=== PATIENT | male | born 1995 | race Caucasian/White ===

== ENCOUNTER 2018-08-11 18:55 | Emergency (ER) | payer OTHER ==
[~2018-08-11] VITALS: Ht 170.2 cm; Wt 93.0 kg
[~2018-08-11 18:55] MED LIST: CENTRUM SILVER1 EAC2 PO; HYDROCODON-ACE1 EAC8 PO; NICODERM CQ1 EAC1 TD; ONDANSETRON ODT4 MG PO; PERCOCET 5-3251 EACH PO; PERCOCET PO; ZOFRAN ODT4 MG PO
[2018-08-11 21:44] VITALS: BP 122/78
== END 2018-08-11 21:47 | disposition home or self-care (01) ==
LOC: M.ERS 18:55
DX: T78.40XA Allergy, unspecified, initial encounter (principal); X58.XXXA Exposure to other specified factors, initial encounter; R22.0 Localized swelling, mass and lump, head; F17.210 Nicotine dependence, cigarettes, uncomplicated; Z90.49 Acquired absence of other specified parts of digestive tract